=== PATIENT | male | born 1950 | race Caucasian/White ===

== ENCOUNTER → 2016-05-31 | Outpatient (CLI) | payer OTHER ==
[~2016-05-31] MED LIST: ACIPHEX 20 MG T20 MG PO; ADVAIR HFA 1112 UNIT INH; AGGRENOX CAPSU1 EACH PO; AMITRIPTYLINE H25 M2 PO; ARICEPT10 MG PO; ASPIR 8181 MG PO; BENAZEPRIL HCL20 MG PO; CLARITIN10 MG PO; CLONAZEPAM 1 MG1 M1 PO; FENTANYL 1100 MCG/HR TD; FENTANYL 1100 MCG/HR TRANSDERM; FENTANYL PA25 MCG/HR TD; FIBER TABS625 MG PO; FLONASE 0.05%50 MCG NASAL; HYDROCHLOROTH12.5 M1 PO; INVOKANA300 MG PO; LANSOPRAZOLE30 MG PO; LIPITOR20 MG PO; LOTREL 10-40 M1 EACH PO; LUNESTA3 MG PO; LYRICA 50 MG50 MG PO; NEURONTIN 300300 M1 PO; OMEPRAZOLE20 M2 PO; OXYCONTIN10 M1 PO; OXYCONTIN30 MG PO; PERCOCET 10-651 EACH PO; PHENERGAN 25 MG25 M1 PO; SERTRALINE HCL25 M1 PO; SERTRALINE HCL50 MG PO; TOPROL XL25 MG PO; UNICOMPLEX M TA1 TA1 PO; XOPENEX1.25 MG/3 INH; ZANAFLEX4 MG PO
== END ==
LOC: CAT 15:29
DX: R63.4 Abnormal weight loss (principal); R91.1 Solitary pulmonary nodule; Z77.090 Contact with and (suspected) exposure to asbestos

== ENCOUNTER → 2016-10-18 | Outpatient (CLI) | payer OTHER ==
[2016-10-18 16:43] LABS: ABG SAMPLE TYPE ARTERIAL; BE(vivo) 2.9 mmol/L (-2 to +3); HCO3 26.1 mmol/L (22.0-26.0); LACTATE 1.72 mmol/L (0.5-2.0); O2(CT) 25.4 mL/dL (15.0-23.0); O2Hb 97.3 % (92.0-98.0); PCO2 35.9 mmHg (35.0-45.0); PO2 109.1 mmHg (80.0-100.0); pH 7.479 (7.360-7.450); sO2 98.3 % (92.0-98.0); tCO2 27.2 mmol/L (24.0-30.0)
[2016-10-18 16:44] LABS: STICK SITE L.BRACHIAL
== END ==
LOC: LAB 15:54
PROVIDERS: Internal Medicine Pulmonary Disease
DX: R06.02 Shortness of breath (principal)